=== PATIENT | male | born 1965 | race Caucasian/White ===

== ENCOUNTER → 2023-11-26 09:09 | Outpatient (CLI) | payer MEDICARE, MEDICAID, SELFPAY ==
--- NOTE | 2023-11-26 | DI.ECHO.S_ITS ---
[place] [facility]---------+ [facility] +---------+ : : [address] : [address] : : : : [id number] : : : : Phone: [phone]---------+ Echocardiogram Report + + :Name: CANDIDO ESPAÑA Study Date: 11/26/2023 Height: 71 in : :[facility] ReadingLocation: Weight: 160 lb : : Gender: Male BSA: 1.9 m2 : :: 1965 Age: 57 yrs BP: 143/90 mmHg: :Reason For Study: ALCOHOLIC CARDIOMYOPATHY : :Ordering Physician: MICHAEL, : :[place] Performed By: Onel Hernandez : :Referring: ARGENTINA CONLEY W : + + Interpretation Summary Normal left ventricle size with ejection fraction 40-45%. There is mild to moderate global hypokinesis of the left ventricle. There is a pacemaker lead in the right ventricle. No significant valvular abnormality. Comparison is made with the echocardiogram of 09/08/16, there has been no significant change. Procedure: A two-dimensional transthoracic echocardiogram with color flow and Doppler was performed. The study quality was technically adequate. Comparison is made with the echocardiogram of 09/08/16. The patient was in normal sinus rhythm during the exam. Left Ventricle: The left ventricle is normal in size and wall thickness. The ejection fraction is estimated to be 40-45%. There is mild to moderate global hypokinesis of the left ventricle. Right Ventricle: There is a pacemaker lead in the right ventricle. The right ventricle is normal in size and function. Atria: The left atrial size is normal. The right atrium is normal in size. There is a catheter/pacemaker lead seen in the right atrium. Mitral Valve: The mitral valve is normal in structure and function. There is no mitral valve stenosis. There is trace mitral regurgitation. Aortic Valve: The aortic valve is trileaflet. There is no aortic valve stenosis. There is trace aortic regurgitation. Tricuspid Valve: The tricuspid valve is normal in structure and function. There is no tricuspid stenosis. There is mild tricuspid regurgitation. The right ventricular systolic pressure is estimated to be at least 35 mmHg based on an estimated right atrial pressure of 3 mm Hg. Pulmonic Valve: The pulmonic valve is not well visualized. There is no pulmonic valvular stenosis. There is no pulmonic valvular regurgitation. Great Vessels: The aortic root is borderline dilated. The dimensions of the ascending aorta are normal. The inferior vena cava appeared normal. Pericardium/ Pleura There is no pericardial effusion. There is no pleural effusion. MMode/2D Measurements & Calculations LVIDd: 4.4 cm LVOT diam: 2.5 cm LVIDs: 2.9 cm Ao root diam: 3.8 cm FS: 33.4 % Ao Arch Diam (Prox Trans): 2.8 cm IVSd: 0.89 cm LVPWd: 1.0 cm LV mandel. diameter/BSA (cm/m^2): 2.3 LV sys. diameter/BSA (cm/m^2): 1.5 LA A2 area: 13.5 cm2 RA long axis: 3.6 cm LA A4 area: 13.8 cm2 RA area: 12.9 cm2 LA length (vol): 4.6 cm RA vol: 38.9 ml LA vol: 34.3 ml RA : 20.3 ml/m2 LA vol index: 17.9 ml/m2 IVC diam: 1.3 cm RVD1 (basal): 3.6 cm RVD2 (mid): 3.0 cm TAPSE: 2.1 cm Doppler Measurements & Calculations Ao V2 max: 110.1 cm/sec LVOT Max Joao: 101.7 cm/sec Ao V2 mean: 76.9 cm/sec LV V1 max P.1 mmHg Ao max P.8 mmHg LV V1 VTI: 23.7 cm Ao mean P.6 mmHg ED(I,D): 4.7 cm2 Ao V2 VTI: 24.4 cm ED(V,D): 4.5 cm2 sev ratio: 0.97 ED indexed to BSA (cm^2/m^2): 2.4 AI P1/2t: 633.9 msec AI dec slope: 206.7 cm/sec2 MV E max joao: 56.2 cm/sec TR max joao: 283.6 cm/sec MV A max joao: 64.3 cm/sec TR max P.2 mmHg MV E/A: 0.87 PA pr(Accel): 39.6 mmHg Med Peak E' Joao: 6.5 cm/sec E/E' med: 8.6 Lat Peak E' Joao: 8.3 cm/sec E/E' lat: 6.7 E/e' average: 7.7 MV dec time: 0.25 sec SV(LVOT): 114.3 ml Electronically signed by: Mario Bryan on Reading Physician:11/27/2023 06:46 AM
== END ==
LOC: ECHO 09:10
PROVIDERS: Referring Provider Nurse Practitioner; Visit Provider Nurse Practitioner
DX: I42.6 Alcoholic cardiomyopathy (principal); Z95.0 Presence of cardiac pacemaker; I07.1 Rheumatic tricuspid insufficiency
CPT/HCPCS: 93306

== ENCOUNTER → 2024-04-16 15:39 | Outpatient (CLI) | payer MEDICARE, MEDICAID, SELFPAY | LOC: RESP 15:40 | PROVIDERS: Referring Provider Nurse Practitioner; Visit Provider Nurse Practitioner | DX: R06.09 Other forms of dyspnea (principal); F17.210 Nicotine dependence, cigarettes, uncomplicated; R94.2 Abnormal results of pulmonary function studies | CPT/HCPCS: 94060; 94726; 94729 ==